=== PATIENT | female | born 1960 | race Caucasian/White ===

== ENCOUNTER 2017-07-25 06:37 | Emergency (ER) | payer BC ==
[~2017-07-25] VITALS: Ht 152.4 cm; Wt 70.0 kg
[2017-07-25] MEDS ORDERED: IOHEXOL 350 MG/ML 10 ML VIAL (for RAD DIAG) IVCONTRAST ONE (06:38)
[2017-07-25 06:40] VITALS: BP 158/70; PULSE 75; RESP 16; TEMP 97.8; O2SAT 96
[2017-07-25 07:04] VITALS: BP 121/75; PULSE 72; RESP 17; O2SAT 97
[2017-07-25] MEDS ORDERED: ESTR0.62 VAGINAL (07:04)
[2017-07-25] MEDS ORDERED: SODIUM CHLOR 0.9% 1000 ML INJ 1,000 ML IV SCH (07:18)
[2017-07-25] MEDS ORDERED: LIDOCAINE VISCOUS 2% SOLN 15 ML UDC PO ONE (07:30)
[2017-07-25] MEDS ORDERED: MORPHINE SULFATE 4 MG/ML INJ IV PUSH ONE ×2 (07:30→10:15)
[2017-07-25] MEDS ORDERED: ALUMINUM/MAGNESIUM/SIMETH 30 ML CUP PO ONE (07:30)
[2017-07-25] MEDS ORDERED: SODIUM CHLORIDE 0.9% FLUSH 10 ML FLUSH IV FLUSH PRN (07:30)
[2017-07-25] MEDS ORDERED: FAMOTIDINE 20 MG/2 ML VIAL IV PUSH ONE (07:30)
[2017-07-25] MEDS ORDERED: ONDANSETRON HCL 4 MG/2 ML VIAL IVP ONE (07:30)
[2017-07-25 08:23] LABS: AUTOMATED NEUTROPHIL # 5.5 TH/MM3 (1.8-7.7); BASOPHIL # 0.1 TH/MM3 (0-0.2); BASOPHIL % 0.7 % (0.0-2.0); EOSINOPHIL # 0.1 TH/MM3 (0-0.4); HEMATOCRIT 46.6 % (35.0-46.0); HEMOGLOBIN 15.8 GM/DL (11.6-15.3); LYMPH % 29.5 % (9.0-44.0); LYMPHOCYTE # 2.5 TH/MM3 (1.0-4.8); MEAN CELL VOLUME 88.7 FL (80.0-100.0); MEAN CORPUSCULAR HEMOGLOBIN 30.1 PG (27.0-34.0); MEAN PLATELET VOLUME 8.7 FL (7.0-11.0); MONO % 4.6 % (0.0-8.0); MONOCYTE # 0.4 TH/MM3 (0-0.9); NEUT % 64.2 % (16.0-70.0); PLATELET COUNT 223 TH/MM3 (150-450); RED BLOOD COUNT 5.25 MIL/MM3 (4.00-5.30); RED CELL DISTRIBUTION WIDTH 14.2 % (11.6-17.2); WHITE BLOOD COUNT 8.6 TH/MM3 (4.0-11.0)
[2017-07-25 08:35] LABS: PROTHROMBIN TIME - PATIENT 10.2 SEC (9.8-11.6)
[2017-07-25 08:35] LABS: BACTERIA, URINE OCC /hpf; BILIRUBIN, URINE NEG (NEG); BLOOD, URINE NEG (NEG); GLUCOSE,URINE NEG (NEG); HYALINE CAST, URINE 1 /lpf (RARE); KETONE, URINE NEG (NEG); NITRITE,URINE NEG (NEG); SQUAMOUS EPITHELIAL CELL URINE <1 /hpf (0-5); URINE COLOR YELLOW (YELLW/STRAW); URINE LEUKOCYTE ESTERASE NEG (NEG)
[2017-07-25 08:46] LABS: ALBUMIN 3.6 GM/DL (3.4-5.0); BICARBONATE 29.4 MEQ/L (21.0-32.0); CALCIUM 9.1 MG/DL (8.5-10.1); CREATININE 0.78 MG/DL (0.50-1.00)
[2017-07-25 08:49] LABS: DIRECT BILIRUBIN ADULT 0.1 MG/DL (0.0-0.2); INDIRECT BILIRUBIN 0.2 MG/DL (0.0-0.8); TOTAL BILIRUBIN ADULT 0.3 MG/DL (0.2-1.0); TOTAL PROTEIN 7.2 GM/DL (6.4-8.2)
--- NOTE | 2017-07-25 10:16 | RADRPT ---
EXAM DATE/TIME: 07/25/2017 09:14 [place] COMPARISON: No previous studies available for comparison. INDICATIONS : Epigastric pain. IV CONTRAST: 95 cc Omnipaque 350 (iohexol) IV ORAL CONTRAST: No oral contrast ingested. RADIATION DOSE: 8.08 CTDIvol (mGy) MEDICAL HISTORY : Colitis SURGICAL HISTORY : Hysterectomy. ENCOUNTER: Initial ACUITY: 1 day PAIN SCALE: 5/10 LOCATION: Bilateral upper quadrant TECHNIQUE: Volumetric scanning of the abdomen and pelvis was performed. Using automated exposure control and ad justment of the mA and/or kV according to patient size, radiation dose was kept as low as reasonably achievable to obtain optimal diagnostic quality images. DICOM format image data is available electro nically for review and comparison. FINDINGS: Imaging through the lung bases demonstrates moderate atelectasis or scarring in the anterior aspect o f the left lower lobe. The lung bases are otherwise clear. The appearance of the liver, spleen, adrenal glands and kidneys is within normal limits. Examination of the pancreas demonstrates a 7 mm x 9 mm cystic area within the tail of the pancreas. T his may simply represent a small cyst however this is incompletely evaluated by this CT. MRI imaging would be of benefit at some point for more definitive characterization. The abdominal aorta is normal in caliber. There is no retroperitoneal lymphadenopathy. The visualized loops of small and large bowel in the upper abdomen are unremarkable. There is no free fluid within the pelvis. No free air is seen. The appendix is visualized and is norm al in appearance. There is no iliac or inguinal adenopathy present. The patient is post hysterectomy. The visualized bony structures are intact. CONCLUSION: 1. Incidental 7 mm x 9 mm low attenuation lesion in the tail of the pancreas. This is incompletely as sessed by CT imaging. At some point, a followup MRI imaging with contrast would be of benefit for mor e definitive assessment. There are no inflammatory changes around this. 2. Small area of atelectasis or scarring in the anterior aspect of the left upper lobe. 3. No definite abnormality to explain the patient's epigastric pain identified. Best Gardner MD on July 25, 2017 at 10:10 Board Certified Radiologist. This report was verified electronically.
[2017-07-25 10:23] VITALS: BP 123/60; PULSE 71; RESP 18; O2SAT 97
--- NOTE | 2017-07-25 10:43 | PD ---
HPI Chief Complaint: Back/ Neck Pain or Injury Time Seen by Provider: 07:13 Travel History International Travel<30 days: No Contact w/Intl Traveler<30days: No Traveled to known affect area: No History of Present Illness HPI Patient is a 56 year old female who comes in complaining of pain that goes from her back to front at the bottom of her ribs. She says this started last night, but she has been feeling sick for the past few days, with what she thinks was a sinus infection. She says she has not been eating much because things don't taste good. She denies nausea or vomiting. She denies chest pain or SOB. She tried taking Tylenol PM without relief of her symptoms. She denies fever or chills. She says she has never had pain like this before. Severity is mild to moderate. PFSH Past Medical History Diminished Hearing: No Gastrointestinal Disorders: Yes (ulcerative colitis) Tetanus Vaccination: Unknown Influenza Vaccination: No ?: Not Past Surgical History Hysterectomy: Yes Social History Alcohol Use: No Tobacco Use: Yes Substance Use: No Allergies-Medications (Allergen,Severity, Reaction): Coded Allergies: Penicillins (Verified Allergy, Severe, 07/25/17) swelling Reported Meds & Prescriptions Reported Meds & Active Scripts Active Reported Premarin Vaginal (Estrogens, Conjugated Vaginal) 0.625 Mg/Gm Cream 1 Gm VAGINAL Q3D Review of Systems Except as stated in HPI: all other systems reviewed are Neg General / Constitutional: No: Fever, Chills HENT: No: Headaches, Lightheadedness Cardiovascular: No: Chest Pain or Discomfort Respiratory: No: Shortness of Breath Gastrointestinal: Positive: Abdominal Pain, No: Nausea, Vomiting Genitourinary: No: Dysuria Musculoskeletal: No: Myalgias, Edema Skin: No Rash, No Change in Pigmentation Neurologic: No: Weakness, Dizziness Physical Exam Narrative GENERAL: Awake and alert, in no acute distress. SKIN: Focused skin assessment warm/dry. No wounds or signs of infection. HEAD: Atraumatic. Normocephalic. EYES: Pupils equal and round. No scleral icterus. No injection or drainage. ENT: No nasal bleeding or discharge. Mucous membranes pink and moist. NECK: Trachea midline. No JVD. CARDIOVASCULAR: Regular rate and rhythm. No murmur appreciated. RESPIRATORY: No accessory muscle use. Clear to auscultation. Breath sounds equal bilaterally. GASTROINTESTINAL: Abdomen soft, non-tender, nondistended. Pain is not reproducible. MUSCULOSKELETAL: No obvious deformities. No clubbing. No cyanosis. No edema. NEUROLOGICAL: Awake and alert. No obvious cranial nerve deficits. Motor grossly within normal limits. Normal speech. PSYCHIATRIC: Appropriate mood and affect; insight and judgment normal. Data Data Last Documented VS Vital Signs Date Time Temp Pulse Resp B/P (MAP) Pulse Ox O2 Delivery O2 Flow Rate FiO2 07/25/17 10:23 71 18 123/60 (81) 97 Room Air 07/25/17 06:40 97.8 Orders Orders Basic Metabolic Panel (Bmp) (07/25/17 07:18) Complete Blood Count With Diff (07/25/17 07:18) Lipase (07/25/17 07:18) Prothrombin Time / Inr (Pt) (07/25/17 07:18) Act Partial Throm Time (Ptt) (07/25/17 07:18) Urinalysis - C+S If Indicated (07/25/17 07:18) Ct Abd/Pel W Iv Contrast(Rout) (07/25/17 07:18) Iv Access Insert/Monitor (07/25/17 07:18) Ecg Monitoring (07/25/17 07:18) Oximetry (07/25/17 07:18) Morphine Inj (Morphine Inj) (07/25/17 07:30) Ondansetron Inj (Zofran Inj) (07/25/17 07:30) Sodium Chlor 0.9% 1000 Ml Inj (Ns 1000 M (07/25/17 07:18) Sodium Chloride 0.9% Flush (Ns Flush) (07/25/17 07:30) Electrocardiogram (07/25/17 07:18) Famotidine Inj (Pepcid Inj) (07/25/17 07:30) Al-Mag Hy-Si 40-40-4 Mg/Ml Liq (Mag-Al P (07/25/17 07:30) Lidocaine 2% Viscous (Xylocaine 2% Visco (07/25/17 07:30) Hepatic Functional Panel (07/25/17 07:18) Iohexol 350 Inj (Omnipaque 350 Inj) (07/25/17 06:38) Morphine Inj (Morphine Inj) (07/25/17 10:15) Dicyclomine (Bentyl) (07/25/17 10:45) Labs Laboratory Tests Test 07/25/17 07:45 07/25/17 07:50 Urine Color YELLOW Urine Turbidity CLEAR Urine pH 6.0 Urine Specific [place] 1.007 Urine Protein NEG mg/dL Urine Glucose (UA) NEG mg/dL Urine Ketones NEG mg/dL Urine Occult Blood NEG Urine Nitrite NEG Urine Bilirubin NEG Urine Urobilinogen LESS THAN 2.0 MG/DL Urine Leukocyte Esterase NEG Urine RBC LESS THAN 1 /hpf Urine WBC 1 /hpf Urine Squamous Epithelial Cells <1 /hpf Urine Bacteria OCC /hpf Urine Hyaline Casts 1 /lpf Microscopic Urinalysis Comment CULT NOT INDICATED White Blood Count 8.6 TH/MM3 Red Blood Count 5.25 MIL/MM3 Hemoglobin 15.8 GM/DL Hematocrit 46.6 % Mean Corpuscular Volume 88.7 FL Mean Corpuscular Hemoglobin 30.1 PG Mean Corpuscular Hemoglobin Concent 34.0 % Red Cell Distribution Width 14.2 % Platelet Count 223 TH/MM3 Mean Platelet Volume 8.7 FL Neutrophils (%) (Auto) 64.2 % Lymphocytes (%) (Auto) 29.5 % Monocytes (%) (Auto) 4.6 % Eosinophils (%) (Auto) 1.0 % Basophils (%) (Auto) 0.7 % Neutrophils # (Auto) 5.5 TH/MM3 Lymphocytes # (Auto) 2.5 TH/MM3 Monocytes # (Auto) 0.4 TH/MM3 Eosinophils # (Auto) 0.1 TH/MM3 Basophils # (Auto) 0.1 TH/MM3 CBC Comment DIFF FINAL Differential Comment Prothrombin Time 10.2 SEC Prothromb Time International Ratio 1.0 RATIO Activated Partial Thromboplast Time 25.4 SEC Blood Urea Nitrogen 10 MG/DL Creatinine 0.78 MG/DL Random Glucose 91 MG/DL Total Protein 7.2 GM/DL Albumin 3.6 GM/DL Calcium Level 9.1 MG/DL Alkaline Phosphatase 94 U/L Aspartate Amino Transf (AST/SGOT) 15 U/L Alanine Aminotransferase (ALT/SGPT) 23 U/L Total Bilirubin 0.3 MG/DL Direct Bilirubin 0.1 MG/DL Sodium Level 141 MEQ/L Potassium Level 4.0 MEQ/L Chloride Level 108 MEQ/L Carbon Dioxide Level 29.4 MEQ/L Anion Gap 4 MEQ/L Estimat Glomerular Filtration Rate 76 ML/MIN Indirect Bilirubin 0.2 MG/DL Lipase 124 U/L [facility] Medical Decision Making Medical Screen Exam Complete: Yes Emergency Medical Condition: Yes Medical Record Reviewed: Yes Interpretation(s) ECG shows NSR at 61, no ST elevation or depression, normal intervals. Differential Diagnosis gastritis vs GERD vs PUD vs pancreatitis vs cholecystitis Narrative Course Patient is a 56 year old female who comes in complaining of pain wrapping around from her back to her abdomen. Exam shows pain is not reproducible. IV established, labs sent. Labs show no acute abnormalities. CT abd/pelvis performed shows a pancreatic cyst, no signs of inflammation. Last 24 hours Impressions Abdomen/Pelvis CT 07/25/17 0718 Signed Impressions: Service Date/Time: Sunday, July 25, 2017 09:14 - CONCLUSION: 1. Incidental 7 mm x 9 mm low attenuation lesion in the tail of the pancreas. This is incompletely assessed by CT imaging. At some point, a followup MRI imaging with contrast would be of benefit for more definitive assessment. There are no inflammatory changes around this. 2. Small area of atelectasis or scarring in the anterior aspect of the left upper lobe. 3. No definite abnormality to explain the patient's epigastric pain identified. Best Gardner MD Patient informed of the results. She is offered MRI while she is here, but she would prefer to have it done as an outpatient. She has an appointment with her doctor on Sunday. She is given a copy of her results to take with her. She was given GI cocktail with pain medicine with improvement of her symptoms. she will be discharged with prescriptions for Zantac and Bentyl. Advised to eat bland foods and drink plenty of fluids. Advised to return to the ED as needed for any worsening symptoms. Diagnosis Primary Impression: Abdominal pain Qualified Codes: R10.13 - Epigastric pain Patient Instructions: Abdominal Pain (ED), Gastroesophageal Reflux Disease (ED) , General Instructions Additional Instructions: Take Zantac daily to help with stomach acid. Take Bentyl as needed for spasms. Take Tylenol as needed for pain. Eat a bland diet. Drink plenty of fluids. Follow up with your doctor. You need to have an outpatient MRI to evaluate your pancreatic cyst. Scripts Ranitidine (Zantac) 150 Mg Tab 150 MG PO BID for Reduce Stomach Acid, #60 TAB 0 Refills Prov: Susannah Sparrow MD 07/25/17 Dicyclomine (Bentyl) 10 Mg Cap 10 MG PO TID Y for Bowel Management, #20 CAP 0 Refills Prov: Susannah Sparrow MD 07/25/17 Disposition: 01 DISCHARGE HOME Condition: Stable Susannah Sparrow MD Jul 25, 2017 10:43
[2017-07-25] MEDS ORDERED: DICYCLOMINE HCL 10 MG CAP PO ONE (10:45)
[2017-07-25] MEDS ORDERED: DICY10 PO (12:00)
[2017-07-25] MEDS ORDERED: ZANT150T2 PO (12:00)
--- NOTE | 2017-07-25 15:20 | EKG ---
Date Performed: 07/25/2017 Time Performed: 08:37:22 PTAGE: 56 years EKG: Sinus rhythm LOW QRS VOLTAGE IN PRECORDIAL LEADS BORDERLINE ECG NO PREVIOUS TRACING DOCTOR: Scott Carroll Interpretating Date/Time 07/25/2017 15:19:38
== END 2017-07-25 13:12 | disposition home or self-care (01) ==
LOC: NEPE 06:37
DX: R10.13 Epigastric pain (principal); R94.31 Abnormal electrocardiogram [ECG] [EKG]; Z72.0 Tobacco use
CPT/HCPCS: 74177; 80048; 80076; 81001; 83690; 85025; 85610; 85730; 93005; 96361; 96374; 96375; 99285; J2270; J2405; J7030; Q9967